=== PATIENT | female | born 1955 | race Native Hawaiian/Other Pacific Islander ===

== ENCOUNTER 2019-03-04 13:35 | Inpatient (IN) | payer SELFPAY ==
[2019-03-04 13:45] VITALS: BMI 22.4
[2019-03-04 14:44] LABS: BASO % 0.2 % (0.0-2.0); HEMOGLOBIN 12.9 g/dL (11.0-16.0); LYMPH # 0.9 K/uL (1.0-4.3); LYMPH % 5.4 % (20.0-40.0); MEAN CELL VOLUME 85.7 fL (81.0-99.0); MEAN CORPUSCULAR HEMOGLOBIN 29.4 pg (27.0-31.0); MEAN CORPUSCULAR HGB CONC 34.3 g/dL (33.0-37.0); MEAN PLATELET VOLUME 7.5 fL (7.2-11.7); MONO # 0.9 K/uL (0.0-0.8); MONO % 5.4 % (0.0-10.0); NEUT # 14.6 K/uL (1.8-7.0); PLATELET COUNT 229 K/uL (130-400); RBC 4.39 Mil/uL (3.80-5.20); RED CELL DISTRIBUTION WIDTH 14.2 % (11.5-14.5); WHITE BLOOD COUNT 16.4 K/uL (4.8-10.8)
[2019-03-04 14:44] LABS: VENOUS BLOOD GAS BASE EXCESS 1.6 mmol/L (0.0-2.0); VENOUS BLOOD GAS PCO2 33 mmHg (40-60); VENOUS BLOOD GAS PO2 47 mm/Hg (30-55); VENOUS BLOOD PH 7.48 (7.32-7.43)
[2019-03-04 14:52] LABS: INR 1.3; PARTIAL THROMBOPLASTIN TIME 32.3 SECONDS (21-34); PROTHROMBIN TIME 14.2 SECONDS (9.7-12.2)
[2019-03-04 14:55] LABS: URINE BILIRUBIN NEGATIVE (NEGATIVE); URINE BLOOD 1+ (NEGATIVE); URINE CLARITY Clear (Clear); URINE COLOR Yellow (YELLOW); URINE GLUCOSE (UA) NORMAL (Normal); URINE LEUKOCYTE ESTERASE NEG Leu/uL (Negative); URINE PROTEIN NEGATIVE (NEGATIVE); URINE UROBILINOGEN NORMAL mg/dL (0.2-1.0)
[2019-03-04 14:57] LABS: ALB/GLOB RATIO 1.3 (1.0-2.1); ALBUMIN 4.7 g/dL (3.5-5.0); ALT/SGPT 16 U/L (9-52); AST/SGOT 24 U/L (14-36); BLOOD UREA NITROGEN 7 mg/dL (7-17); CALCIUM 8.5 mg/dl (8.6-10.4); GFR NON-AFRICAN AMERICAN > 60
[2019-03-04 15:09] LABS: CK-MB < 0.22 ng/mL (0.0-3.38)
[2019-03-04 15:14] LABS: BANDS 7 % (0-2); LYMPHOCYTE 5 % (20-40); MONOCYTE 6 % (0-10); NEUTROPHIL 82 % (50-75); PLATELET ESTIMATE NORMAL (NORMAL); TOTAL CELLS COUNTED 100
[2019-03-04 15:15] LABS: ANISOCYTOSIS SLIGHT; HYPOCHROMIC SLIGHT; POLYCHROMIC SLIGHT
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
[2019-03-04] MEDS ORDERED: Potassium Chloride 20 mEq ER Tab PO STA (15:38)
--- NOTE | 2019-03-04 15:41 | RAD ---
HISTORY: cough fever COMPARISON: None available. TECHNIQUE: Chest, one view. FINDINGS: Patient is rotated. LUNGS: Hyperinflation may be seen in setting of COPD. Mild venous congestion. Mild bibasilar atelectasis. Please note that chest x-ray has limited sensitivity for the detection of pulmonary masses. PLEURA: No significant pleural effusion identified. No definite pneumothorax . CARDIOVASCULAR: Borderline cardiomegaly. Ectatic aorta. OSSEOUS STRUCTURES: No acute osseous abnormality identified. VISUALIZED UPPER ABDOMEN: Elevation of the left hemidiaphragm. OTHER FINDINGS: None. IMPRESSION: Hyperinflation may be seen in setting of COPD. Mild venous congestion. Mild bibasilar atelectasis.
[2019-03-04] MEDS ORDERED: Iodixanol 320 MG/ML 100 ML BOTTLE IV ONE (15:48)
[2019-03-04] MEDS ORDERED: Potassium Chloride 20 mEq ER Tab PO ONE (15:49)
--- NOTE | 2019-03-04 17:29 | CT ---
Date of service: 03/04/2019 CT chest, abdomen, and pelvis with IV contrast Indication: fever, chest pain/upper abd pain Technique: Contiguous axial images of the chest, abdomen, and pelvis. Coronal and Sagittal reformats generated and reviewed. This CT exam was performed using 1 or more of the following dose reduction techniques: Automated exposure control, adjustment of the MAA and/or kV according to patient size, and/or use of iterative reconstruction technique. Contrast: 100 mL Visipaque 320 IV Radiation dose: Total exam DLP = 424.11 MGy-cm. Comparison: None available Findings: Visualized portions of the inferior thyroid gland appear unremarkable. The mediastinal and hilar vascular structures appear within normal limits. The heart appears within normal limits of size. Emphysematous changes. Bibasilar atelectasis. No pleural effusion. No pneumothorax. The liver, spleen, kidneys, pancreas, adrenal glands, and gallbladder appear unremarkable. The stomach is nondistended. The bowel loops appear within normal limits of caliber without evidence of intestinal obstruction. There is no definite free air. Uterus is present. Prominent pelvic vessels, possibly related pelvic congestion syndrome. Mildly thick-walled urinary bladder may be exaggerated by under distension. Osseous demineralization. Degenerative changes. Impression: Emphysematous changes. Bibasilar atelectasis. Mildly thick-walled urinary bladder may be exaggerated by under distension. Correlate with urinalysis. Additional incidental findings as above.
[2019-03-04] MEDS ORDERED: Sodium Chloride 0.9% 1,000 ML IV ONE (18:17)
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
[2019-03-04] MEDS ORDERED: Albuterol-Ipratrop 3 mg / 0.5 (3 ml) UD INH STA (21:51)
[2019-03-04] MEDS ORDERED: Albuterol-Ipratrop 3 mg / 0.5 (3 ml) UD ONE (22:13)
[2019-03-04 22:20] LABS: ABG ALLEN TEST POS; ARTERIAL BLOOD GAS HCO3 21.9 mmol/L (21-28); ARTERIAL BLOOD GAS O2 SAT 97.9 % (95-98); ARTERIAL BLOOD GAS PCO2 30 mm/Hg (35-45); ARTERIAL BLOOD GAS PH 7.42 (7.35-7.45); ARTERIAL BLOOD GAS PO2 85 mm/Hg (80-100); ARTERIAL BLOOD GAS TCO2 20.4 mmol/L (22-28)
[2019-03-04] MEDS ORDERED: Sodium Chloride 0.9% 1,000 ML IV SCH (22:45)
[2019-03-04] MEDS ORDERED: Sodium Chloride 0.9% 1,000 ML ONE (23:37)
[2019-03-05] MEDS ORDERED: Albuterol-Ipratrop 3 mg / 0.5 (3 ml) UD INH PRN (02:47)
[2019-03-05] MEDS: Albuterol-Ipratrop 3 mg / 0.5 (3 ml) UD INH SCH (03:49)
[2019-03-05] MEDS ORDERED: Albuterol-Ipratrop 3 mg / 0.5 (3 ml) UD ONE (04:12)
[2019-03-05 05:25] LABS: BASO # 0.1 K/uL (0.0-0.2); BASO % 0.5 % (0.0-2.0); EOS % 0.1 % (0.0-4.0); HEMOGLOBIN 11.9 g/dL (11.0-16.0); LYMPH # 1.4 K/uL (1.0-4.3); LYMPH % 9.3 % (20.0-40.0); MEAN CELL VOLUME 86.7 fL (81.0-99.0); MEAN CORPUSCULAR HEMOGLOBIN 28.3 pg (27.0-31.0); MEAN CORPUSCULAR HGB CONC 32.6 g/dL (33.0-37.0); MEAN PLATELET VOLUME 7.4 fL (7.2-11.7); MONO # 1.3 K/uL (0.0-0.8); MONO % 8.2 % (0.0-10.0); NEUT # 12.7 K/uL (1.8-7.0); NEUT % 81.9 % (50.0-75.0); PLATELET COUNT 182 K/uL (130-400); RBC 4.19 Mil/uL (3.80-5.20); RED CELL DISTRIBUTION WIDTH 14.3 % (11.5-14.5); WHITE BLOOD COUNT 15.5 K/uL (4.8-10.8)
[2019-03-05 05:52] LABS: ALBUMIN 3.5 g/dL (3.5-5.0); ALT/SGPT 14 U/L (9-52); AST/SGOT 23 U/L (14-36); BLOOD UREA NITROGEN 5 mg/dL (7-17); CALCIUM 8.2 mg/dl (8.6-10.4); GFR NON-AFRICAN AMERICAN > 60
[2019-03-05 06:00] LABS: LYMPHOCYTE 10 % (20-40); MONOCYTE 6 % (0-10); NEUTROPHIL 84 % (50-75); PLATELET ESTIMATE NORMAL (NORMAL); TOTAL CELLS COUNTED 100
[2019-03-05 06:23] LABS: T3 0.898 nmol/L (1.49-2.60)
--- NOTE | 2019-03-05 07:43 | CP.PCM.PN ---
<Suresh Garcia L - Last Filed: 03/05/19 10:50> Subjective - Date & Time of Evaluation Date of Evaluation: 03/05/19 Time of Evaluation: 07:43 - Subjective Subjective: Resident Progress Note for Hospitalist Service Patient examined at bedside. No acute events overnight. Patient afebrile, feeling better overall however still having persistent productive cough with clear sputum. Denies fevers, chills, chest pain, shortness of breath, abdominal pain, diarrhea, dysuria. Objective - Vital Signs/Intake and Output Vital Signs (last 24 hours): Temp Pulse Resp BP Pulse Ox 98.1 F 82 20 101/69 98 03/04/19 23:57 03/05/19 07:18 03/05/19 07:18 03/05/19 07:18 03/05/19 07:18 - Medications Medications: Current Medications Acetaminophen (Tylenol 325mg Tab) 650 mg PO Q6 PRN PRN Reason: pain or fever Albuterol/Ipratropium (Duoneb 3 Mg/0.5 Mg (3 Ml) Ud) 3 ml INH RQ6 MITCHELL Last Admin: 03/05/19 03:49 Dose: 3 ml Albuterol/Ipratropium (Duoneb 3 Mg/0.5 Mg (3 Ml) Ud) 3 ml INH RQ2 PRN PRN Reason: Shortness of Breath Heparin Sodium (Porcine) (Heparin) 5,000 units SC Q12 MITCHELL Azithromycin 500 mg/ Sodium (Chloride) 250 mls @ 250 mls/hr IVPB DAILY MITCHELL; Protocol Ceftriaxone Sodium 1 gm/ (Sodium Chloride) 100 mls @ 100 mls/hr IVPB DAILY MITCHELL; Protocol Sodium Chloride (Sodium Chloride 0.9%) 1,000 mls @ 120 mls/hr IV .Q8H20M [facility] Last Admin: 03/04/19 23:40 Dose: 120 mls/hr Ibuprofen (Motrin Tab) 600 mg PO TID PRN PRN Reason: pain or fever Lactobacillus Acidophilus (Lactobacillus) 1 cap PO BID MITCHELL - Labs Labs: 03/05/19 05:18 03/05/19 05:18 PT 14.2 SECONDS (9.7-12.2) H 03/04/19 14:37 INR 1.3 03/04/19 14:37 APTT 32.3 SECONDS (21-34) 03/04/19 14:37 - Constitutional Appears: No Acute Distress, Well - Head Exam Head Exam: ATRAUMATIC, NORMOCEPHALIC - Eye Exam Eye Exam: EOMI, Normal appearance, PERRL - ENT Exam ENT Exam: Mucous Membranes Moist - Neck Exam Neck exam: Positive for: Normal Inspection - Respiratory Exam Respiratory Exam: Clear to Auscultation Bilateral, NORMAL BREATHING PATTERN. ab sent: Wheezes, Ronchi, Rales - Cardiovascular Exam Cardiovascular Exam: RRR, +S1, +S2. absent: Tachycardia - GI/Abdominal Exam GI & Abdominal Exam: Normal Bowel Sounds, Soft. absent: Tenderness - Neurological Exam Neurological exam: Alert, CN II-XII Intact, Oriented x3 - Psychiatric Exam Psychiatric exam: Normal Affect, Normal Mood - Skin Skin Exam: Dry, Normal Color, Warm Assessment and Plan - Assessment and Plan (Free Text) Assessment: Patient is a 63 year old female with a history of asthma, HTN, and unspecified thyroid disorder who presents with fevers, chills, and generalized body pain, cough. Plan: Upper respiratory tract infection - leukocytosis trending down - CXR: hyperinflation, mild venous congestion, mild atelectasis - CT chest/abd/pelvis: emphysematous changes, bibasilar atelectasis, mildly thick-walled bladder - Rapid flu negative - Quantiferon pending - Blood, urine, sputum Cx pending - NS @ 120 cc/hr - Tylenol 650 mg PO Q6H PRN - Duoneb Q6H MITCHELL, Q2H PRN - Azithromycin 500 mg IV daily- started 03/04 - Rocephin 1 g IV daily- started 03/04 - Lactobacillus PO BID Chest pain - likely due to cough/generalized aches - DEE negative Hyponatremia - resolved, continue to monitor - fluids discontinued Hypokalemia - monitor and replete Thyroid disorder - TSH elev (7.76) - Free T4 wnl - Total T3, free T3 low - patient to have outpatient followup for readjustment of thyroid medications Asthma - Duoneb Q6H MITCHELL, Q2H PRN Hypertension - normotensive not on meds, continue to monitor PPX VTE: SCDs, Heparin 5000 units SC Q12H GI: not indicated Code status: full code Dispo: pending cultures and clinical improvement Case reviewed with Dr. Margarita Garcia PGY-1 <Cherelle Avila - Last Filed: 03/06/19 16:02> Objective - Vital Signs/Intake and Output Vital Signs (last 24 hours): Temp Pulse Resp BP Pulse Ox 97.9 F 76 20 117/79 98 03/06/19 07:00 03/06/19 07:34 03/06/19 07:00 03/06/19 07:00 03/06/19 07:00 Intake and Output: 03/06/19 03/06/19 06:59 18:59 Intake Total 350 Balance 350 - Labs Labs: 03/06/19 07:28 03/06/19 07:28 PT 14.2 SECONDS (9.7-12.2) H 03/04/19 14:37 INR 1.3 03/04/19 14:37 APTT 32.3 SECONDS (21-34) 03/04/19 14:37 Attending/Attestation - Attestation I have personally seen and examined this patient.: Yes I have fully participated in the care of the patient.: Yes I have reviewed all pertinent clinical information, including history, physical exam and plan: Yes Notes (Text): 1.fever .follow blood and urine culture 2.Bronchitis/Upper respiratory tract infection 3.Hypothyroididsm-has meds at home prescribed by her PMD.she was not taking continue antibiotics and duoneb,follow cultures
[2019-03-05] MEDS ORDERED: Potassium Chloride 20 mEq ER Tab PO ONE (07:56)
[2019-03-05] MEDS: Lactobacillus Acidophilus 500 MU Cap PO SCH ×2 (10:24→17:34)
[2019-03-05] MEDS: Azithromycin 500 MG in Sodium Chloride 0.9% 250 ML IVPB SCH (10:25)
[2019-03-05 10:41] LABS: MYCOPLASMA PNEUMONIAE IGM NEGATIVE (NEGATIVE)
[2019-03-05 11:47] LABS: STREP PNEMONIAE AG NEGATIVE (NEGATIVE)
[2019-03-06 01:31] VITALS: O2SAT 98
[2019-03-06 07:38] LABS: BASO # 0.1 K/uL (0.0-0.2); BASO % 0.7 % (0.0-2.0); EOS # 0.1 K/uL (0.0-0.7); EOS % 1.4 % (0.0-4.0); LYMPH # 1.7 K/uL (1.0-4.3); LYMPH % 18.8 % (20.0-40.0); MEAN CELL VOLUME 85.8 fL (81.0-99.0); MEAN CORPUSCULAR HEMOGLOBIN 29.4 pg (27.0-31.0); MEAN CORPUSCULAR HGB CONC 34.3 g/dL (33.0-37.0); MEAN PLATELET VOLUME 8.2 fL (7.2-11.7); MONO # 0.9 K/uL (0.0-0.8); MONO % 9.7 % (0.0-10.0); NEUT # 6.3 K/uL (1.8-7.0); NEUT % 69.4 % (50.0-75.0); RBC 4.07 Mil/uL (3.80-5.20); RED CELL DISTRIBUTION WIDTH 14.7 % (11.5-14.5)
[2019-03-06 07:50] LABS: ALB/GLOB RATIO 1.1 (1.0-2.1); ALBUMIN 3.8 g/dL (3.5-5.0); ALT/SGPT 16 U/L (9-52); AST/SGOT 27 U/L (14-36); BLOOD UREA NITROGEN 5 mg/dL (7-17); CALCIUM 8.6 mg/dl (8.6-10.4); GFR NON-AFRICAN AMERICAN > 60
[2019-03-06 07:51] VITALS: BP 117/79; RESP 20; TEMP 97.9
[2019-03-06 08:42] VITALS: PULSE 76
[2019-03-06] MEDS: Lactobacillus Acidophilus 500 MU Cap PO SCH (09:07)
[2019-03-06] MEDS: Albuterol-Ipratrop 3 mg / 0.5 (3 ml) UD INH SCH ×2 (09:21→13:34)
[2019-03-06] MEDS ORDERED: Benzocaine/Menthol (Cepacol) Lozenge MT SCH (09:30)
[2019-03-06] MEDS ORDERED: Benzocaine/Menthol (Cepacol) Lozenge MT PRN (09:30)
[2019-03-06] MEDS: Azithromycin 500 MG in Sodium Chloride 0.9% 250 ML IVPB SCH (10:42)
--- NOTE | 2019-03-06 14:02 | CP.PCM.DIS ---
Provider - Provider Date of Admission: 03/04/19 18:22 Attending physician: Maylin Quiroga MD Time Spent in preparation of Discharge (in minutes): 35 Diagnosis - Discharge Diagnosis (1) Respiratory tract infection Status: Acute (2) Asthma Status: Acute Hospital Course - Lab Results Lab Results: Micro Results 03/04/19 14:30 Blood Blood Culture - Preliminary NO GROWTH AFTER 24 HOURS 03/04/19 14:45 Blood Blood Culture - Preliminary NO GROWTH AFTER 24 HOURS 03/05/19 05:30 Sputum Gram Stain - Final 03/04/19 14:47 Urine Random Urine Culture - Final No Growth (<1,000 CFU/ML) Most Recent Lab Values WBC 9.0 K/uL (4.8-10.8) 03/06/19 07:28 RBC 4.07 Mil/uL (3.80-5.20) 03/06/19 07:28 Hgb 12.0 g/dL (11.0-16.0) 03/06/19 07:28 Hct 34.9 % (34.0-47.0) 03/06/19 07:28 MCV 85.8 fL (81.0-99.0) 03/06/19 07:28 MCH 29.4 pg (27.0-31.0) 03/06/19 07:28 MCHC 34.3 g/dL (33.0-37.0) 03/06/19 07:28 RDW 14.7 % (11.5-14.5) H 03/06/19 07:28 Plt Count 209 K/uL (130-400) 03/06/19 07:28 MPV 8.2 fL (7.2-11.7) 03/06/19 07:28 Neut % (Auto) 69.4 % (50.0-75.0) 03/06/19 07:28 Lymph % (Auto) 18.8 % (20.0-40.0) L 03/06/19 07:28 Greenlee % (Auto) 9.7 % (0.0-10.0) 03/06/19 07:28 Eos % (Auto) 1.4 % (0.0-4.0) 03/06/19 07:28 Baso % (Auto) 0.7 % (0.0-2.0) 03/06/19 07:28 Neut # (Auto) 6.3 K/uL (1.8-7.0) 03/06/19 07:28 Lymph # (Auto) 1.7 K/uL (1.0-4.3) 03/06/19 07:28 Greenlee # (Auto) 0.9 K/uL (0.0-0.8) H 03/06/19 07:28 Eos # (Auto) 0.1 K/uL (0.0-0.7) 03/06/19 07:28 Baso # (Auto) 0.1 K/uL (0.0-0.2) 03/06/19 07:28 Neutrophils % (Manual) 84 % (50-75) H 03/05/19 05:18 Band Neutrophils % 7 % (0-2) H 03/04/19 14:37 Lymphocytes % (Manual) 10 % (20-40) L 03/05/19 05:18 Monocytes % (Manual) 6 % (0-10) 03/05/19 05:18 Platelet Estimate Normal (NORMAL) 03/05/19 05:18 RBC Morphology Normal 03/05/19 05:18 Polychromasia Slight 03/04/19 14:37 Hypochromasia (manual) Slight 03/04/19 14:37 Anisocytosis (manual) Slight 03/04/19 14:37 PT 14.2 SECONDS (9.7-12.2) H 03/04/19 14:37 INR 1.3 03/04/19 14:37 APTT 32.3 SECONDS (21-34) 03/04/19 14:37 Puncture Site Rradial 03/04/19 22:15 pCO2 30 mm/Hg (35-45) L 03/04/19 22:15 pO2 85 mm/Hg (80-100) 03/04/19 22:15 HCO3 21.9 mmol/L (21-28) 03/04/19 22:15 ABG pH 7.42 (7.35-7.45) 03/04/19 22:15 ABG Total CO2 20.4 mmol/L (22-28) L 03/04/19 22:15 ABG O2 Saturation 97.9 % (95-98) 03/04/19 22:15 ABG Base Excess -3.9 mmol/L (-2.0-3.0) L 03/04/19 22:15 Luciano Test Pos 03/04/19 22:15 ABG Potassium 2.7 mmol/L (3.6-5.2) L 03/04/19 22:15 VBG pH 7.48 (7.32-7.43) H 03/04/19 14:41 VBG pCO2 33 mmHg (40-60) L 03/04/19 14:41 VBG HCO3 25.9 mmol/L 03/04/19 14:41 VBG Total CO2 25.6 mmol/L (22-28) 03/04/19 14:41 VBG O2 Sat (Calc) 89.8 % (40-65) H 03/04/19 14:41 VBG Base Excess 1.6 mmol/L (0.0-2.0) 03/04/19 14:41 VBG Potassium 2.9 mmol/L (3.6-5.2) L 03/04/19 14:41 A-a O2 Difference 27.0 mm/Hg 03/04/19 22:15 Respiratory Index 0.3 03/04/19 22:15 Sodium 137.0 mmol/l (132-148) 03/04/19 22:15 Chloride 111.0 mmol/L (98-107) H 03/04/19 22:15 Glucose 140 mg/dl (65-105) H 03/04/19 22:15 Lactate 0.8 mmol/L (0.7-2.1) 03/04/19 22:15 FiO2 21.0 % 03/04/19 22:15 Sodium 137 mmol/L (132-148) 03/06/19 07:28 Potassium 3.8 mmol/L (3.6-5.2) 03/06/19 07:28 Chloride 102 mmol/L (98-107) 03/06/19 07:28 Carbon Dioxide 23 mmol/L (22-30) 03/06/19 07:28 Anion Gap 15 (10-20) 03/06/19 07:28 BUN 5 mg/dL (7-17) L 03/06/19 07:28 Creatinine 0.4 mg/dL (0.7-1.2) L 03/06/19 07:28 Est GFR ( Amer) > 60 03/06/19 07:28 Est GFR (Non-Af Amer) > 60 03/06/19 07:28 Random Glucose 86 mg/dL (65-105) 03/06/19 07:28 Calcium 8.6 mg/dl (8.6-10.4) 03/06/19 07:28 Phosphorus 2.7 mg/dL (2.5-4.5) 03/06/19 07:28 Magnesium 1.9 mg/dL (1.6-2.3) 03/06/19 07:28 Total Bilirubin 0.2 mg/dL (0.2-1.3) 03/06/19 07:28 AST 27 U/L (14-36) 03/06/19 07:28 ALT 16 U/L (9-52) 03/06/19 07:28 Alkaline Phosphatase 95 U/L (38-126) 03/06/19 07:28 Total Creatine Kinase 60 U/L (30-135) 03/04/19 14:37 CK-MB (Mass) < 0.22 ng/mL (0.0-3.38) 03/04/19 14:37 Troponin I < 0.0120 ng/mL (0.00-0.120) 03/04/19 14:37 Total Protein 7.3 g/dL (6.3-8.3) 03/06/19 07:28 Albumin 3.8 g/dL (3.5-5.0) 03/06/19 07:28 Globulin 3.5 gm/dL (2.2-3.9) 03/06/19 07:28 Albumin/Globulin Ratio 1.1 (1.0-2.1) 03/06/19 07:28 Free T4 1.02 ng/dL (0.78-2.19) 03/04/19 23:45 Free T3 pg/mL 1.87 pg/mL (2.77-5.27) L 03/05/19 05:18 Total T3 0.898 nmol/L (1.49-2.60) L 03/05/19 05:18 TSH 3rd Generation 7.76 mIU/L (0.46-4.68) H 03/04/19 23:45 Arterial Blood Potassium 2.7 mmol/L (3.6-5.2) L 03/04/19 22:15 Venous Blood Potassium 2.9 mmol/L (3.6-5.2) L 03/04/19 14:41 Urine Color Yellow (YELLOW) 03/04/19 14:47 Urine Clarity Clear (Clear) 03/04/19 14:47 Urine pH 7.0 (5.0-8.0) 03/04/19 14:47 Ur Specific [place] 1.010 (1.003-1.030) 03/04/19 14:47 Urine Protein Negative mg/dL (NEGATIVE) 03/04/19 14:47 Urine Glucose (UA) Normal mg/dL (Normal) 03/04/19 14:47 Urine Ketones Negative mg/dL (NEGATIVE) 03/04/19 14:47 Urine Blood 1+ (NEGATIVE) H 03/04/19 14:47 Urine Nitrate Negative (NEGATIVE) 03/04/19 14:47 Urine Bilirubin Negative (NEGATIVE) 03/04/19 14:47 Urine Urobilinogen Normal mg/dL (0.2-1.0) 03/04/19 14:47 Ur Leukocyte Esterase Neg Uzair/uL (Negative) 03/04/19 14:47 Urine WBC (Auto) 1 /hpf (0-5) 03/04/19 14:47 Urine RBC (Auto) 2 /hpf (0-3) 03/04/19 14:47 Influenza Typ A,B (EIA) Negative for flu a/b (NEGATIVE) 03/04/19 14:47 Ur L.pneumophila Ag Negative (NEGATIVE) 03/05/19 05:30 Mycoplasma pneumon IgM Negative (NEGATIVE) 03/05/19 05:18 S. pneumoniae Antigen Negative (NEGATIVE) 03/05/19 05:18 - Hospital Course Hospital Course: On admission: Patient is a 63 yo female with a history of asthma, HTN, and unspecified thyroid disorder who presents with fevers, chills, and generalized body pain. Patient is a poor historian. Patient's grandson is at bedside who helps provide history via patient's daughter on the phone. As per daughter, yesterday the patient was burning incense when the smoke alarm went off and patient began having sever cough and SOB. Patient has had a cough productive of white phelgm for >20 years; however, she hardly uses her inhaler for asthma. Additionally, patient was recently very sick in [place] last year also with cough and unintentional weight loss. Patient is presently complaining of headache, chest pain, abdominal pain, and dysuria. The chest pain specifically has been present for 1 month. Hospitalization: Patient admitted for syptoms of SOB, body aches and chest pain. Patient noted to have fever and Leukocytosis at 16.4. CXR on admission showed hyperinflation, mild venous congestion, mild atelectasis. CT chest/abd/pelvis showed emphysematous changes, bibasilar atelectasis, mildly thick-walled bladder. See full report. A Rapid flu was negative. Blood culture negative 24H, urine cx negative and sputum culture and Quantiferon gold still pending. Patient will have to follow up these results with her PMD. Patient was given IV fluids, Duonebs and started on Azithromycin 500 mg IV daily and Rocephin 1 g IV daily, with improvement of symptoms. Troponin was negative. Chest pain likely muskuloskeletal due to cough. TSH noted to be elevated at 7.76. Patient states she has thyroid medicine at home but does not take it. Patient encouraged to take her medicatio and follow up with PMD. On discharge, patient is afebrile symptoms are much improved. Discharge instructions: Patient is stable as per Dr. Avila. Patient will be discharged with the following prescriptions: Azithromycin 500mg once daily for 5 days Ventolin inhaler take 2 puffs only if needed for shortness of breath/cough You must see your primary care doctor within one week of discharge. You will need to follow up results of Quantiferon Gold test done during your admission. Please continue taking your home medications as you usually do. Continue taking your thyroid medication. You have confirmed that you have your medicines at home and do not need refills. You will have to follow up your thyroid level with your Primary care doctor. Return to the emergency room for new or worsening symptoms. Discharge Exam - Head Exam Head Exam: ATRAUMATIC, NORMAL INSPECTION - Additional Findings Additional findings: - Constitutional Appears: No Acute Distress, Well - Head Exam Head Exam: ATRAUMATIC, NORMOCEPHALIC - Eye Exam Eye Exam: EOMI, Normal appearance, PERRL - ENT Exam ENT Exam: Mucous Membranes Moist - Neck Exam Neck exam: Positive for: Normal Inspection - Respiratory Exam Respiratory Exam: Occasional Rhonchi, otherwise Clear to Auscultation Bilateral, NORMAL BREATHING PATTERN. absent: Wheezes, Rales - Cardiovascular Exam Cardiovascular Exam: RRR, +S1, +S2. absent: Tachycardia - GI/Abdominal Exam GI & Abdominal Exam: Normal Bowel Sounds, Soft. absent: Tenderness - Neurological Exam Neurological exam: Alert, CN II-XII Intact, Oriented x3 - Psychiatric Exam Psychiatric exam: Normal Affect, Normal Mood - Skin Skin Exam: Dry, Normal Color, Warm Discharge Plan - Discharge Medications Prescriptions: Albuterol HFA [Ventolin HFA 90 mcg/actuation (8 g)] 2 puff IH [id number] PRN #1 inhaler PRN Reason: Shortness Of Breath Azithromycin 500 mg PO DAILY #5 tablet - Follow Up Plan Condition: GOOD Disposition: HOME/ ROUTINE Instructions: Azithromycin (Systemic), Asthma, Adult (DC), Avoiding Asthma Triggers, Bacterial Upper Respiratory Infection, Adult (DC), Albuterol Additional Instructions: Patient is stable as per Dr. Avila. Patient will be discharged with the following prescriptions: Azithromycin 500mg once daily for 5 days Ventolin inhaler take 2 puffs only if needed for shortness of breath/cough You must see your primary care doctor within one week of discharge. You will need to follow up results of Quantiferon Gold test done during your admission. Please continue taking your home medications as you usually do. Continue taking your thyroid medication. You have confirmed that you have your medicines at home and do not need refills. You will have to follow up your thyroid level with your Primary care doctor. Return to the emergency room for new or worsening symptoms.
== END 2019-03-06 14:45 | disposition home or self-care (01) | DRG 202 ==
LOC: C.ER 13:35 → C.9E 18:22 → C.5S 03-05 06:54 → C.5E 03-05 07:12 → C.5S 03-05 07:15
PROVIDERS: ADMIT Emergency Medicine; ATTEND Emergency Medicine
DX: J40 Bronchitis, not specified as acute or chronic (principal); J98.11 Atelectasis; J45.909 Unspecified asthma, uncomplicated; J06.9 Acute upper respiratory infection, unspecified; I10 Essential (primary) hypertension